=== PATIENT | female | born 1995 | race American Indian/Alaskan Native ===

== ENCOUNTER 2018-10-09 11:55 | Emergency (ER) | payer MEDICAID, OTHER ==
[2018-10-09 12:05] VITALS: O2SAT 100
[2018-10-09 13:10] LABS: BLOOD UREA NITROGEN 16 mg/dl (7-17); CALCIUM 9.6 mg/dL (8.4-10.2); GFR NON-AFRICAN AMERICAN > 60; LIPASE 105 U/L (23-300)
[2018-10-09 13:16] LABS: ALB/GLOB RATIO 1.3 (1.0-2.1); ALBUMIN 4.8 g/dL (3.5-5.0); ALT/SGPT 19 U/L (9-52); AST/SGOT 40 U/L (14-36); HEMOGLOBIN 13.5 g/dL (12.0-16.0); MEAN CELL VOLUME 89.9 fl (81.0-99.0); MEAN CORPUSCULAR HEMOGLOBIN 29.4 pg (27.0-31.0); MEAN CORPUSCULAR HGB CONC 32.7 g/dL (33.0-37.0); RBC 4.59 Mil/uL (3.80-5.20); RED CELL DISTRIBUTION WIDTH 14.3 % (11.5-14.5); WHITE BLOOD COUNT 4.7 K/uL (4.8-10.8)
--- NOTE | 2018-10-09 13:32 | ED PDOC ---
HPI: Abdomen Time Seen by Provider: 10/09/18 12:15 Chief Complaint (Nursing): Abdominal Pain Additional Complaint(s): Pt seen and examined at bedside with attending. 23F no PMH p/w years of epigastric and LUQ intermittent discomfort exacerbated by fatty foods and associated with nausea. She denies trying to take any OTC medication for recent episode and denies being constipated, denies fevers, chills, vomiting, dysuria. LMP: 09/17/2018 Past Medical History Vital Signs: Last Vital Signs Temp 36.7 C 10/09/18 12:05 Pulse 80 10/09/18 12:05 Resp 17 10/09/18 12:05 BP 114/73 10/09/18 12:05 Pulse Ox 100 10/09/18 12:05 - Medical History PMH: Anemia Denies: Anxiety, Bipolar Disorder, Depression, Chronic Kidney Disease - Family History Family History: States: No Known Family Hx - Allergies Allergies/Adverse Reactions: Allergies Allergy/AdvReac Type Severity Reaction Status Date / Time Sulfa (Sulfonamide Allergy PAIN Verified 10/09/18 12:01 Antibiotics) Review of Systems ROS Statement: Except As Marked, All Systems Reviewed And Found Negative Gastrointestinal: Positive for: Abdominal Pain Physical Exam - Reviewed Vital Signs Reviewed: Yes - Physical Exam Appears: Positive for: Well, Non-toxic, No Acute Distress Head Exam: Positive for: ATRAUMATIC Skin: Positive for: Normal Color, Warm, Dry Eye Exam: Positive for: EOMI ENT: Positive for: Normal ENT Inspection Neck: Positive for: Supple Cardiovascular/Chest: Positive for: Regular Rate, Rhythm. Negative for: Murmur Respiratory: Positive for: Normal Breath Sounds. Negative for: Crackles, Rales, Wheezing Gastrointestinal/Abdominal: Positive for: Normal Exam, Bowel Sounds, Soft, Tenderness (minimal tenderness on deep palpation) Back: Negative for: L CVA Tenderness, R CVA Tenderness Extremity: Positive for: Normal ROM. Negative for: Calf Tenderness Neurologic/Psych: Positive for: Alert, Oriented - Laboratory Results Result Diagrams: 10/09/18 12:50 10/09/18 12:50 - ECG O2 Sat by Pulse Oximetry: 100 Medical Decision Making Medical Decision Making: Reflux gastritis vs. nephrolithiasis vs. constipation - CBC, CMP, Lipase, U preg, urine dip - Pepcid - CT abd/pelvis w/o contrast U preg negative, urine dip negative for blood/bacteria. CBC/CMP/Lipase grossly WNL. AST with minimal elevation. 1425 CT read as moderate constipation. Disposition - Clinical Impression Clinical Impression: Constipation, Epigastric discomfort - Patient ED Disposition Is Patient to be Admitted: No Counseled Patient/Family Regarding: Diagnosis - Disposition Referrals: Kevin Hull MD [Family Provider] - (3-5 days) Disposition: Routine/Home Disposition Time: 14:50 Condition: IMPROVED Additional Instructions: Follow up with primary care doctor for further evaluation. Return to the ER for onset of fevers, chills, or acute worsening of symptoms Miralax for constipation and anti-acid for epigastric discomfort Instructions: Constipation, Adult (DC), Gastritis (DC) Forms: [facility] (Cuban)
--- NOTE | 2018-10-09 14:29 | CT ---
Date of service: 10/09/2018 PROCEDURE: CT Abdomen and Pelvis without intravenous contrast HISTORY: Epigastric/LUQ pain COMPARISON: None. TECHNIQUE: Helical CT of the abdomen and pelvis was performed without oral or intravenous contrast as per referring physician request. Coronal and sagittal reformats were generated. Contrast dose: None Radiation dose: Total exam DLP = 340.98 mGy-cm. This CT exam was performed using one or more of the following dose reduction techniques: Automated exposure control, adjustment of the mA and/or kV according to patient size, and/or use of iterative reconstruction technique. FINDINGS: LOWER THORAX: Trace bilateral basilar dependent atelectasis lung bases otherwise unremarkable appearing. LIVER: Unremarkable. No gross lesion or ductal dilatation. GALLBLADDER AND BILE DUCTS: Unremarkable. PANCREAS: Unremarkable. No gross lesion or ductal dilatation. SPLEEN: Unremarkable. ADRENALS: Unremarkable. No mass. KIDNEYS AND URETERS: No radiodense urolithiasis, perinephric fluid collection or obstructive uropathy is appreciate bilaterally. The bilateral ureters appear normal caliber overall. VASCULATURE: Unremarkable. No aortic aneurysm. No aortic atherosclerotic calcification or mural plaque present. BOWEL: Stomach is distended with retained food. There is no bowel obstruction identified. Prominent retained fecal material seen throughout the majority of the colon which may indicate constipation moderately. Hyperdense material in the colon may also reflect prior ingested oral contrast, possibly at an outside institution. There is a nonspecific linear radiodensity at the proximal transverse colon measure 1.1 cm. APPENDIX: Unremarkable. Normal appendix. PERITONEUM: Unremarkable. No free fluid. No free air. LYMPH NODES: Unremarkable. No enlarged lymph nodes. BLADDER: Unremarkable. REPRODUCTIVE: A bulky fibroid uterus is suspected. BONES: No acute fracture. OTHER FINDINGS: None. IMPRESSION: No radiodense urolithiasis, perinephric fluid collection or obstructive uropathy is appreciate bilaterally. The bilateral ureters appear normal caliber overall. No bowel obstruction, mesenteric edema, ascites or free intra peritoneal gas collection. Moderate constipation suspected as well as bulky fibroid uterus. 1.1 cm linear radiodensity proximal transverse colon of uncertain origin.
[2018-10-09 15:16] VITALS: BP 121/75; PULSE 81; RESP 16; TEMP 97.9
== END 2018-10-09 15:16 | disposition home or self-care (01) ==
LOC: H.ER 11:55
DX: K59.00 Constipation, unspecified (principal); R10.13 Epigastric pain

== ENCOUNTER 2018-11-12 11:05 | Emergency (ER) | payer OTHER, MEDICAID ==
[2018-11-12 11:09] VITALS: O2SAT 100; BMI 24.5
[2018-11-12 12:23] LABS: SQUAMOUS EPITHIAL 5 /hpf (0-5); URINE BACTERIA RARE (<OCC); URINE BILIRUBIN NEGATIVE (NEGATIVE); URINE BLOOD NEGATIVE (NEGATIVE); URINE CLARITY CLOUDY (Clear); URINE COLOR YELLOW (YELLOW); URINE GLUCOSE (UA) NEG (NEGATIVE); URINE LEUKOCYTE ESTERASE MOD Leu/uL (Negative); URINE PROTEIN NEGATIVE (NEGATIVE)
[2018-11-12 12:34] LABS: HCG,QUALITATIVE URINE NEGATIVE (NEGATIVE)
[2018-11-12 12:42] LABS: BASO % 0.5 % (0.0-2.0); HEMOGLOBIN 13.3 g/dL (12.0-16.0); LYMPH # 1.3 K/uL (1.0-4.3); LYMPH % 29.1 % (20.0-40.0); MEAN CELL VOLUME 89.5 fl (81.0-99.0); MEAN CORPUSCULAR HEMOGLOBIN 29.3 pg (27.0-31.0); MEAN CORPUSCULAR HGB CONC 32.7 g/dL (33.0-37.0); MEAN PLATELET VOLUME 8.6 fl (7.2-11.7); MONO # 0.3 K/uL (0.0-0.8); MONO % 5.8 % (0.0-10.0); NEUT # 2.8 K/uL (1.8-7.0); NEUT % 63.6 % (50.0-75.0); RBC 4.56 Mil/uL (3.80-5.20); WHITE BLOOD COUNT 4.4 K/uL (4.8-10.8)
[2018-11-12 12:54] LABS: ALB/GLOB RATIO 1.4 (1.0-2.1); ALBUMIN 4.5 g/dL (3.5-5.0); ALT/SGPT 29 U/L (9-52); AMYLASE 76 U/L (30-110); AST/SGOT 24 U/L (14-36); BLOOD UREA NITROGEN 13 mg/dl (7-17); CALCIUM 9.6 mg/dL (8.4-10.2); GFR NON-AFRICAN AMERICAN > 60
--- NOTE | 2018-11-12 12:56 | ED PDOC ---
HPI: Skin/Bite Injury Time Seen by Provider: 11/12/18 11:07 Chief Complaint (Nursing): Needle Stick History Per: Patient Additional Complaint(s): Pt. is an [employer] employee and states she was throwing a used insulin subcutaneous needle which accidentally pricked her on the R index finger. Pt. states she immediately washed the finger with soap and water. Tetanus is not UTD. Pt. is uncertain of source pt.'s PMHx. Past Medical History Reviewed: Historical Data, Nursing Documentation, Vital Signs Vital Signs: Last Vital Signs Temp 98.3 F 11/12/18 11:09 Pulse 79 11/12/18 11:09 Resp 16 11/12/18 11:09 BP 118/74 11/12/18 11:09 Pulse Ox 100 11/12/18 11:09 - Medical History PMH: Anemia Denies: Anxiety, Bipolar Disorder, Depression, Chronic Kidney Disease - Family History Family History: States: No Known Family Hx - Home Medications Home Medications: Ambulatory Orders Medication Instructions Recorded Nitrofurantoin Macrocrystals 100 mg PO BID #14 cap 11/12/18 [Macrobid] - Allergies Allergies/Adverse Reactions: Allergies Allergy/AdvReac Type Severity Reaction Status Date / Time Sulfa (Sulfonamide Allergy PAIN Verified 10/09/18 12:01 Antibiotics) Review of Systems ROS Statement: Except As Marked, All Systems Reviewed And Found Negative Physical Exam - Physical Exam Appears: Positive for: Well, Non-toxic, No Acute Distress Skin: Positive for: Normal Color, Warm. Negative for: Rash Eye Exam: Positive for: Normal appearance Pulses-Radial (L): 2+ Pulses-Radial (R): 2+ Extremity: Positive for: Other (R 2nd digit with small superficial puncture wound on distal phalanx without bleeding; cap refill < 2 seconds of R 2nd digit) Neurologic/Psych: Positive for: Alert, Oriented (x3) - Laboratory Results Result Diagrams: 11/12/18 12:08 11/12/18 12:08 - ECG O2 Sat by Pulse Oximetry: 100 - Progress ED Course And Treament: Labs ordered. Tetanus prophylaxis administered. Advised to contact employee health today and if no answer pt. is to leave a message. Offered post-exposure prophylaxis meds but pt. refused. Risks and benefits discussed in detail. Disposition - Clinical Impression Clinical Impression: Needle stick injury, UTI (urinary tract infection) - Patient ED Disposition Is Patient to be Admitted: No - Disposition Disposition: Routine/Home Disposition Time: 14:13 Condition: STABLE Additional Instructions: CONTACT [email or web address] TODAY JUSTIN JARQUIN, thank you for letting us take care of you today. Your provider was Irving Mejia MD and you were treated for WC;FINGER INJURY. The emergency medical care you received today was directed at your acute symptoms. If you were prescribed any medication, please fill it and take as directed. It may take several days for your symptoms to resolve. Return to the Emergency Department if your symptoms worsen, do not improve, or if you have any other problems. Please contact your doctor or call one of the physicians/clinics you have been referred to that are listed on the Patient Visit Information form that is included in your discharge packet. Bring any paperwork you were given at [facility] with you along with any medications you are taking to your follow up visit. Our treatment cannot replace ongoing medical care by a primary care provider outside of the emergency department. Thank you for allowing the [facility] team to be part of your care today. If you had an X-Ray or CT scan: A Radiologist will review the ED reading if any change in treatment is needed we will contact you. If you had a blood, urine, or wound culture: It will take several days for the results, if any change in treatment is needed we will contact you. If you had an STI test: It will take 48 hours for the results. Please call after 1 week if you have not heard back. Prescriptions: Nitrofurantoin Macrocrystals [Macrobid] 100 mg PO BID #14 cap Instructions: Urinary Tract Infection, Adult (DC), Wound Care (DC) Forms: [facility] (Slovenian)
[2018-11-12] MEDS ORDERED: Tdap Vaccine 0.5 ml Vial (10-64 yrs) IM ONE (14:17)
[2018-11-12] MEDS: Tdap Vaccine 0.5 ml Vial (10-64 yrs) IM ONE (14:21)
[2018-11-12 14:49] VITALS: BP 108/59; PULSE 78; RESP 14; TEMP 98.5
[2018-11-13 08:05] LABS: HEPATITIS B SURFACE AG Negative (NEGATIVE)
[2018-11-13 08:11] LABS: HEPATITIS A IGM NEGATIVE (NEGATIVE); HEPATITIS B CORE AB NEGATIVE (NEGATIVE)
[2018-11-13 08:23] LABS: HEPATITIS C ANTIBODY NEGATIVE (NEGATIVE)
== END 2018-11-12 14:25 | disposition home or self-care (01) ==
LOC: H.ER 11:05
DX: S61.230A Puncture wound without foreign body of right index finger without damage to nail, initial encounter (principal); W46.0XXA Contact with hypodermic needle, initial encounter; Y99.0 Civilian activity done for income or pay; N39.0 Urinary tract infection, site not specified; Z77.21 Contact with and (suspected) exposure to potentially hazardous body fluids; Z79.4 Long term (current) use of insulin